=== PATIENT | male | born 1950 | race Caucasian/White ===

== ENCOUNTER 2018-06-22 00:11 | Day surgery (SDC) | payer OTHER, BC ==
[2015-01-24 15:19] VITALS: Ht 172.7 cm; Wt 129.3 kg
[~2018-06-22] VITALS: Ht 172.7 cm; Wt 129.3 kg
[~2018-06-22 00:11] MED LIST: ACLI400A2 IH; ALB18R INH; ASPI-757 PO; BUPR-126 PO; CELE-1 PO; CITA-156 PO; DEXL60CA6 PO; DOXY25TA60 PO; DUL30 PO; DULERAPT INH; DUTA1CPM3 PO; ESOM40CA42 PO; FEXO1TAB39 PO; FLUT16SP20 NS; LEVO80CA PO; LISI1TAB86 PO; MONT10TA PO; NEBI10TA4 PO; NEBI5TAB PO; OLME1TAB63 PO; OLME1TAB73 PO; OXYC-763 PO; OXYC-823 PO; OXYC-870 PO; POTA20TA94 PO; PREN-67 PO; RIV10 PO; ROF0.5PT PO; ROPI2TAB27 PO; TAMS0.4C70 PO; TRAM-420 PO; VANCOMYCIN 1 GM ADDVIAL 1 GM in NS(*) 0.9% 250 ML ADDVAN BAG 250 ML IVPB ONE; VILA40TA PO; VITA200C8 PO; ZOLP-350 PO; ZOLP12.546 PO
[2018-06-22] MEDS ORDERED: VANCOMYCIN 1 GM ADDVIAL 1 GM in NS(*) 0.9% 250 ML ADDVAN BAG 250 ML IVPB ONE (05:25)
[2018-06-22] MEDS ORDERED: ROPIVACAINE 0.2% 20 ML VIAL ONE (06:36)
[2018-06-22 06:45] VITALS: BP 150/76
[2018-06-22] MEDS ORDERED: MIDAZOLAM 2 MG/2 ML VIAL IVP PRN (07:15)
[2018-06-22] MEDS ORDERED: CLINDAMYCIN(*) 900 MG/NS 50 ML 50 ML IVPB ONE (07:15)
[2018-06-22] MEDS ORDERED: NORMOSOL R SOLN(*) 1000 ML BAG 1,000 ML IV PRN (07:15)
[2018-06-22] MEDS ORDERED: FAMOTIDINE 20 MG TAB PO ONE (07:15)
[2018-06-22] MEDS ORDERED: LIDOCAINE/SOD BICARB 8.4% SYR ID ONE (07:15)
[2018-06-22] MEDS ORDERED: DEXAMETHASONE SOD PHOS 10MG/ML ONE (07:59)
[2018-06-22] MEDS ORDERED: fentaNYL CITR 250 MCG/5 ML AMP ONE (07:59)
[2018-06-22] MEDS ORDERED: LIDOCAINE MPF 1% 5 ML VIAL ONE (07:59)
[2018-06-22] MEDS ORDERED: PROPOFOL EMUL(*) 10MG/ML 20 ML 40 ML ONE (07:59)
[2018-06-22] MEDS ORDERED: ONDANSETRON 4 MG/2 ML VIAL ONE (07:59)
[2018-06-22] MEDS ORDERED: VANCOMYCIN(*) 1 GM VIAL 2 GM in NS(*) 0.9% 250 ML BAG 250 ML IVPB ONE (08:05)
[2018-06-22] MEDS ORDERED: KETAMINE HCL 200 MG/20 ML MDV ONE (08:27)
[2018-06-22] MEDS ORDERED: fentaNYL CITR 100 MCG/2 ML AMP ONE ×2 (11:35→12:27)
[2018-06-22] MEDS ORDERED: KETOROLAC 30 MG/ML VIAL ONE (11:42)
--- NOTE | 2018-06-22 11:57 | OPERATIVE REPORT 1 ---
EVENT DATE: June 22, 2018 SURGEON: Mahesh Johnson MD ANESTHESIOLOGIST: Berny Rosenbaum MD ANESTHESIA: General LMA. RN CHILD: Konstantin Majano PA-C PREOPERATIVE DIAGNOSIS Left thumb basal joint arthritis as well as de Quervain's tenosynovitis. POSTOPERATIVE DIAGNOSIS Left thumb basal joint arthritis as well as de Quervain's tenosynovitis. PROCEDURE PERFORMED Left thumb basal joint arthroplasty with suspension plasty of the flexor carpi radialis and first dorsal compartment release. FINDINGS The patient had a significant amount of arthritic changes associated but was amenable for basal joint arthroplasty. ESTIMATED BLOOD LOSS Minimal. DRAINS None. COMPLICATIONS None. IMPLANTS USED Two Juggernaut anchors to suspend the FCR. SPECIMENS None. TOURNIQUET TIME Just about 80 minutes. INDICATIONS AND HISTORY This patient is a 67-year old male who presented to my clinic for evaluation of left thumb pain and irritation going on for some time with continued irritation despite conservative management. We had tried braces and injections for quite some time but he just continued to have problems so he wanted to go ahead with a left thumb basal joint arthroplasty today, June 22, 2018. The risks and benefits were discussed with the patient and informed consent was obtained at the last clinic visit and we got him set up. He understood there may be patches of numbness and may not give him complete relief associated with it. DESCRIPTION OF PROCEDURE The patient was brought into the operating room. He and the procedure were both verified. He was placed supine on the operative table and induced and intubated by Anesthesia. The left upper extremity was prepped and draped in the usual fashion and a time-out was observed, verifying the correct patient and procedure. The standard incision was made in a curvilinear fashion at the base of the thumb. It was taken through the skin and subcutaneous tissue and I was able to identify the digital nerves on the side of the thumb. I was then able to incise through the capsule over the trapezium and the base of the metacarpal. I was then able to go down and dissect around the trapezium itself and then pull traction on the metacarpal. I then cut the trapezium into in order to try and make it more amenable for removal. I was able to then remove it. Unfortunately, he had a significant amount of osteophytes and was very adherent so we had to remove all of the adherent tissue in order to get it all out. Once I was able to get it all out, the FCR was in a good position in the bottom of the area. There were no signs of problems associated with it and no signs of major arthritis in the STT joint. I then turned attention to the first dorsal compartment, where I was able to release the first dorsal compartment without any major difficulty after dissecting bluntly over the top of it and then releasing the shift without any issues. I then went to the FCR and I was able to identify the FCR insertion as it came into the carpal bones. I was then able to get a snap underneath this and dissect it all the way out and then I made a small incision just proximal up into the mid portion of the forearm, where I went to the myotendinous junction of the FCR. I was then able to cut the tendon area at the myotendinous junction and then harvest that tendon back through the wrist. I then put it back into the area underneath the carpal bones into its insertional area vacated by the trapezium. I then tied in two Juggernaut anchors into the base of the metacarpal after taking off a little bone spur off this area and drilling holes and putting in two Juggernaut anchors. I then anchored the two Juggernaut anchors to the base of the FCR. I then put in a Prolene stitch down one side and up the other in a running stitch fashion in order to accordion this down and then fill in the space. I then tired it over itself and then tied it into the capsule without any difficulty. I then tied the capsule over with the rest of the Juggernaut anchor sutures and then was able to suspend it in place and this looked very good. I irrigated with a copious amount of saline throughout the case and made sure there were no signs or problems with the thumb when it was held in suspension. I then closed the skin with 3-0 Vicryl and this was followed by 4-0 Monocryl in the skin and 3-0 Vicryl proximally. This was then irrigated again and anesthetized with ropivacaine, dressed with Steri-Strips, gauze, 4 x 4's and soft dressing and the patient was put in a thumb spica splint and was awakened, extubated and transferred to PACU in stable condition. CARLITA
[2018-06-22] MEDS ORDERED: OXYC-865 PO (12:15)
[2018-06-22] MEDS ORDERED: EPINEPHrine HCL 1 MG/ML AMP ONE (12:18)
[2018-06-22] MEDS ORDERED: ROPIVACAINE 0.5% 20 ML VIAL ONE (12:18)
[2018-06-22] MEDS ORDERED: NS 0.9% 20 ML SDV 20 ML ONE (12:20)
[2018-06-22 13:00] VITALS: BP 150/76
[2018-06-22 13:49] VITALS: BP 143/69
[2018-06-22 14:16] VITALS: BP 122/60
[2018-06-22 14:19] VITALS: BP 109/66
--- NOTE | 2018-06-22 14:44 | NUR ---
PT 02 SATS ON ROOM AIR 80-83% AFTER GETTING DRESSED, PT HAS NO COMPLAINTS OF BEING SOB, DIZZY, LIGHTHEADED, OR HAVING ANY CHEST PAIN. PT REPORTS FEELING "BACK TO NORMAL" WHEN AMBULATING BACK TO ROOM FROM BR. PT PLACED ON 4L/O2 NC WITH INCREASE IN O2 SATS TO 91%. EDUCATION GIVEN TO BOTH PT AND ABOUT CONTINUING TO DEEP BREATH AND COUGH, USING AEROBIKA TAUGHT BY RESPIRATORY, AND SLEEPING IN A RECLINED POSITION OF COMFORT. DISCUSSED O2 NEEDS WITH DR LITTLE, ORDER RECEIVED FOR HOME OXYGEN, WITH REINFORCEMENT OF IMPORTANCE TO USE CPAP WHEN SLEEPING, O2 WHILE AWAKE UNTIL FOLLOWUP WITH PRIMARY CARE PROVIDER.
--- NOTE | 2018-06-22 15:37 | NUR ---
DR LITTLE IN ROOM, VISITING WITH PT AND ABOUT PLAN OF CARE WITH O2. DR LITTLE REINFORCED PT NEED TO CONTINUE O2 UNTIL FOLLOWUP, AND CPAP WHEN ASLEEP, AND REINFORCED PT AND WITH IMPORTANCE OF WATCHING FOR APNEA PERIODS.
== END 2018-06-22 13:00 | disposition home health service (06) ==
LOC: OR 00:11
PROVIDERS: ATTEND Orthopaedic Surgery
DX: M13.842 Other specified arthritis, left hand (principal); M65.4 Radial styloid tenosynovitis [de Quervain]; I10 Essential (primary) hypertension; G47.30 Sleep apnea, unspecified; J44.9 Chronic obstructive pulmonary disease, unspecified; Z99.81 Dependence on supplemental oxygen
CPT/HCPCS: 25000; 26535; 94667; A4565; C1713; J0171; J1100; J1885; J2001; J2405; J2704; J2795; J3010; J3370; J3490; J7050